=== PATIENT | male | born 1965 | race Caucasian/White ===

== ENCOUNTER 2021-08-07 17:03 | Inpatient (IN) | payer BC, SELFPAY ==
[2021-08-07] VITALS (24 sets, daily range): BP systolic 142–197; BP diastolic 85–138; PULSE 124–184; RESP 12–28; TEMP 36.4–37.1; O2SAT 93–99; BMI 33.9; BMI 33.2
--- NOTE | 2021-08-07 17:23 | EKG12_ITS ---
Test Reason : PALPATATIONS Blood Pressure : / mmHG Vent. Rate : 192 BPM Atrial Rate : 089 BPM P-R Int : 000 ms QRS Dur : 080 ms QT Int : 258 ms P-R-T Axes : 000 -22 116 degrees QTc Int : 461 ms Atrial fibrillation /Flutter ST & T wave abnormality, consider lateral ischemia Poor R wave progression Abnormal ECG Confirmed by MALIA LAMBERT, RAVEN ([id number]), health editor JOAN REYES ([id number]) on 08/08/2021 1:25:04 PM Referred By: Og Sharma Confirmed By:RAVEN FINLEY MD
--- NOTE | 2021-08-07 17:24 | EX.ED.DYSGE1 ---
HPI History of Present Illness Chief Complaint: Palpitations Detail of Chief Complaint: Palpitations that started around 1 PM today Informant: patient Narrative Narrative: Patient was seeing his primary care physician for a diabetic check today when he complained of palpitations and an EKG revealed atrial fibrillation with rapid ventricular response. Patient was advised to present to the emergency department. Patient denies any chest pain or shortness of breath. Patient states this is happened before but usually would resolve after 5 or 6 hours. He is never been diagnosed with atrial fibrillation. He is not currently anticoagulated. Patient does have history of hypertension and diabetes. Patient denies any coronary artery disease history. He does complain of some exertional dyspnea at times but has not been having any chest pain or chest pressure. Prior similar symptoms: Yes [facility] Medical History (Updated 08/07/21 @ 19:[address] Trent Ross, DO) Diabetes History of deviated nasal septum Hypertension Home Medications amlodipine 5 mg PO DAILY 08/07/21 [History Last Taken Unknown] atenolol 50 mg PO DAILY 08/07/21 [History Last Taken Unknown] hydrochlorothiazide 50 mg PO DAILY 08/07/21 [History Last Taken Unknown] lisinopril 40 mg PO DAILY 08/07/21 [History Last Taken Unknown] metformin 100 mg PO BID 08/07/21 [History Last Taken Unknown] rosuvastatin 10 mg PO DAILY 08/07/21 [History Last Taken Unknown] sitagliptin [Januvia] 25 mg PO DAILY 08/07/21 [History Last Taken Unknown] Allergy/AdvReac Type Severity Reaction Status Date / Time amoxicillin Allergy Angioedema Verified 08/07/21 17:08 Penicillins [PCN] Allergy Angioedema Verified 08/07/21 17:08 metoprolol [From Toprol XL] AdvReac Other Verified 08/07/21 17:08 valsartan [From Diovan] AdvReac Upset Verified 08/07/21 17:08 Stomach Social History Smoking Status: Unknown if ever smoked ROS ROS ED Constitutional Constitutional ED: Reports systems reviewed and no addt'l complaints, except as documented; Denies body ache(s), change in weight or chills Eyes Eyes: Denies acute decrease in peripheral vision, change in vision, double vision or loss of vision ENT ENT ED: Reports none; Denies ear pain, lip swelling, loss taste/smell, neck pain, otalgia or sore throat Cardiovascular Cardiovascular: Reports none and palpitations; Denies abdominal pain, chest pain with activity, leg edema, lightheadedness, rapid heart rate or syncope Respiratory/Chest Respiratory/Chest: Reports none; Denies change in mental status, dry cough, dyspnea, hemoptysis, shortness of breath at rest or shortness of breath with exertion Gastrointestinal Gastrointestinal: Reports none; Denies abdominal pain, change in stool character, diarrhea, hematemesis, hematochezia, melena, rectal bleeding or vomiting Genitourinary Genitourinary ED: Reports none; Denies abdominal discomfort, anuria, dysuria, genital pain or polyuria Musculoskeletal Musculoskeletal: Reports none; Denies arthralgias, back pain, difficulty walking, extremity pain, muscle weakness or myalgias Integumentary Reports none; Denies abscess or rash Neurologic Neurologic: Reports none; Denies abnormal gait, confusion, focal weakness, frequent falls, headache(s), loss of vision, numbness, paresthesias, radicular pain, vertigo or weakness Psychiatric Psychiatric: Reports systems reviewed and no addt'l complaints, except as documented and none; Denies behavioral changes, confusion, difficulty concentrating, hallucinations, suicidal ideation, tactile hallucinations or visual hallucinations Endocrine Endocrinology: Denies none, cold intolerance, excessive sweating, fatigue or heat intolerance Hematologic/Lymphatic Hematologic/Lymphatic: Reports none; Denies anemia, easy bleeding or easy bruising Allergic/Immunologic Allergic/Immunologic ED: Denies as per HPI, none, lip swelling, mouth swelling, throat swelling, tongue swelling or hives EXAM Physical Exam Const Vital Signs: 08/07/21 17:04 08/07/21 17:25 08/07/21 17:37 Temperature 98 F Temperature Source Oral Oral Pulse Rate 128 H 184 H Respiratory Rate 16 25 H Respiratory Effort Normal Non-Labored Blood Pressure 197/123 H 189/136 H Blood Pressure Mean 147 153 Blood Pressure Position Blood Pressure Location Pulse Ox 98 97 Oxygen Delivery Method Room Air 08/07/21 17:57 08/07/21 17:59 08/07/21 18:00 Temperature Temperature Source Pulse Rate 172 H 161 H 172 H Respiratory Rate 28 H Respiratory Effort Blood Pressure 151/99 H Blood Pressure Mean 116 Blood Pressure Position Blood Pressure Location Pulse Ox 98 Oxygen Delivery Method Room Air 08/07/21 18:01 08/07/21 18:09 08/07/21 18:39 Temperature 98.7 F 98.7 F Temperature Source Temporal Temporal Pulse Rate 151 H 139 H 151 H Respiratory Rate 28 H 16 15 Respiratory Effort Blood Pressure 168/87 H 168/87 H 174/112 H Blood Pressure Mean 114 114 132 Blood Pressure Position Sitting Blood Pressure Location Right Arm Pulse Ox 97 97 97 Oxygen Delivery Method Room Air Room Air Positive well nourished and well developed General Appearance ED: well developed and NAD HEENT Reports TM's clear and moist mucous membranes normocephalic and atraumatic; Negative for trauma or tenderness Tympanic Membrane ED: Yes TM's clear Eyes PERRL and EOMs intact bilaterally General Eye ED: Negative for pale conjunctiva or scleral icterus Neck no lymphadenopathy, supple and no JVD General: Negative for tenderness Chest Wall inspection of chest normal and palpation of chest normal Chest: Negative for tenderness Resp normal respiratory effort and clear to auscultation bilaterally Effort and Inspection: Negative for respiratory distress or pain with movement Auscultation: Negative for rhonchi, wheezes or diminished lung sounds Cardio S1 normal heart sound, S2 normal heart sound and no murmurs Rate: tachycardic and other Other Details: Irregularly irregular and tachycardic Peripheral Pulses: pulses 2+ throughout GI normal to inspection, nondistended, normoactive bowel sounds, soft to palpation, non-tender, non-distended and no masses Back/Spine no CVA tenderness and no thoracic nor lumbar tenderness Extremity normal to inspection General Extremety ED: Negative for edema General Extremity: Negative for edema Neuro oriented x3, CN's II-XII intact bilaterally, no sensory deficits noted and gait normal Sensorium / Orientation: awake, alert, oriented to person, oriented to place and oriented to time Motor Exam: strength 5/5 throughout and strength abnormal Psych mental status grossly normal Skin no rashes or lesions noted and no wounds MDM MDM MDM Narrative Medical decision making narrative: Patient noted to have A. fib RVR and initially was given Cardizem 20 mg IV bolus however his heart rate continued to be in the 140s to 150s. Patient was then given a 25 mg Cardizem bolus and started on a Cardizem drip. Patient still uncontrolled. Case discussed with hospitalist will evaluate patient for admission Lab Data Attestation: I reviewed the patient's lab results. Labs: Laboratory Results - last 24 hr 08/07/21 08/07/21 17:20 17:20 WBC 11.1 H RBC 5.61 Hgb 17.2 H Hct 49.1 MCV 87.5 MCH 30.7 MCHC 35.0 RDW Std Deviation 40.2 RDW Coeff of [place] 12.5 Plt Count 303 MPV 9.4 Immature Gran % (Auto) 0.400 Neut % (Auto) 61.7 Lymph % (Auto) 24.5 [place] % (Auto) 10.0 Eos % (Auto) 2.7 Baso % (Auto) 0.7 Absolute Neuts (auto) 6.9 Absolute Lymphs (auto) 2.73 Nucleated RBC % 0 Sodium 139 Potassium 3.0 L Chloride 103 Carbon Dioxide 27.0 Anion Gap 9 BUN 22 H Creatinine 1.26 Estim Creat Clear Calc 73.56 Est GFR (MDRD) Af Amer 77 Est GFR (MDRD) Non-Af 63 BUN/Creatinine Ratio 17.5 Glucose 209 H Calcium 9.4 Troponin I High Sens 24 TSH 1.76 Radiography Chest X-Ray - ED: 1 View Diagnostic Testing: Radiology Impression Chest X-Ray 08/07/21 17:42 IMPRESSION: No radiographic evidence of acute cardiopulmonary disease. at 1814 Reported and signed by: Amari Bansal MD Electronically Signed: Amari Bansal MD at 18:13 EDT Tel , Service support , 1 view chest x-ray obtained showed no acute disease process as interpreted by myself. Radiology in agreement. EKG Initial EKG: Attestation: I personally reviewed and interpreted this EKG as follows: Comments: A. fib RVR with ventricular rate of [address] changes. Discharge Plan Triage Chief Complaint: Palpitations ED Provider: Trent Ross Dx/Rx/DC Orders Clinical Impression: Atrial fibrillation with rapid ventricular response, Hypertension Prescriptions: No Action hydrochlorothiazide 50 mg tablet 50 mg PO DAILY RF: 0 amlodipine 5 mg tablet 5 mg PO DAILY RF: 0 lisinopril 40 mg tablet 40 mg PO DAILY RF: 0 metformin 500 mg tablet extended release 24 hr 100 mg PO BID RF: 0 atenolol 50 mg tablet 50 mg PO DAILY RF: 0 rosuvastatin 10 mg tablet 10 mg PO DAILY RF: 0 Januvia 25 mg tablet 25 mg PO DAILY RF: 0 Primary Care Provider: Nemesio Persaud Referrals: Nemesio Persaud MD [Primary Care Provider] - Disposition Disposition: Acute Care Hospital [facility]
--- NOTE | 2021-08-07 17:26 | NURSING ---
NO OLD EKGS
[2021-08-07 17:34] LABS: Absolute Lymphocyte Count 2.73 X10^3/uL (0.83-4.51); Absolute Neutrophil Count 6.9 X10^3/uL (2.0-7.7); Basophil# 0.08 X10^3/uL; Basophil% 0.7 % (0-1); Eosinophils% 2.7 % (0-5); Hematocrit 49.1 % (40-54); Hemoglobin 17.2 g/dL (13.0-16.5); Lymphocyte # 2.73 X10^3/ul (0.83-4.51); Lymphocyte % 24.5 % (19-41); Mean Corpuscular Hgb 30.7 pg (27.0-32.0); Mean Corpuscular Volume 87.5 fL (80-94); Mean Platelet Vol. 9.4 fl (6.2-12.0); Monocyte# 1.11 X10^3/uL; NRBC Flagged by Analyzer 0 % (0-5); Neutrophil # 6.88 X10^3/uL (2.7-7.7); Neutrophil % 61.7 % (47-70); Platelet Count 303 K/mm3 (150-450); RBC Distribution Width CV 12.5 % (11.6-14.6); RBC Distribution Width SD 40.2 fl (35.1-43.9); Red Blood Count 5.61 M/mm3 (4.6-6.2); White Blood Count 11.1 K/mm3 (4.4-11.0)
--- NOTE | 2021-08-07 17:42 | RAD_ITS ---
HISTORY: tachycardia EXAMINATION/TECHNIQUE: XR Chest 1 View: 1 view COMPARISON: None FINDINGS: LINES/DEVICES: None. LUNGS: No consolidation, edema or effusion. No pneumothorax. MEDIASTINUM AND CARDIOVASCULAR STRUCTURES: Cardiac silhouette not enlarged. Central airways and mediastinal contour are unremarkable. BONES AND SOFT TISSUES: No acute bony abnormalities. RAD/Chest 1 View (Portable) IMPRESSION: No radiographic evidence of acute cardiopulmonary disease. at 1814 Reported and signed by: Amari Bansal MD Electronically Signed: Amari Bansal MD at 18:13 EDT Tel , Service support ,
[2021-08-07] MEDS: 0.9% Normal Saline 1,000 ML 150 ML IV (17:44)
[2021-08-07] MEDS: dilTIAZem 25 MG/5 ML Vial 20 MG IV BOLUS (17:44)
[2021-08-07] MEDS: dilTIAZem 25 MG/5 ML Vial IV BOLUS (17:56)
[2021-08-07 17:59] LABS: Anion Gap 9 (5-15); BUN 22 mg/dL (7-18); BUN/Creat Ratio 17.5 RATIO (10-20); Calcium,Total 9.4 mg/dL (8.5-10.1); Chloride 103 mmol/L (98-107); Creatinine, Serum 1.26 mg/dL (0.70-1.30); EST Glomerular Filtration Rate 63 mL/min (>60); Est Glom Filt Rate - Afr Amer 77 mL/min (>60); Estimated Creatinine Clearance 73.56 ml/min; Glucose 209 mg/dL (74-106); Sodium Level 139 mmol/L (136-145); Thyroid Stim Hormone (TSH) 1.76 uIU/mL (0.358-3.74); Troponin-I HS 24 pg/mL (3.0-78.0)
--- NOTE | 2021-08-07 19:17 | PCM.HP.STD ---
HPI - General General Date of Admission: 08/07/21 Date of Service: 08/07/21 Chief Complaint: Palpitations HPI Narrative FINESSE MALAVE, is a 56 M with a significant history of hypertension and diabetes who presents to the emergency department with palpitations. Patient went to see his PCP for diabetic checkup. While there he mentioned that he had a palpitation on the same day. Auscultation of heart rate at PCPs office showed irregular rhythm. Subsequent EKG confirmed A. fib. Patient was sent to emergency department. At the emergency department patient's EKG showed atrial fibrillation with rapid ventricular response with rate of 192. Patient received multiple boluses of Cardizem IV and Cardizem drip was initiated. Patient reported that from time to time he has been having palpitations that goes away. He also reports multiple episodes of his blood pressure machine show him that his heart rate was irregular. [facility] Medical History Diabetes History of deviated nasal septum Hypertension Home Medications amlodipine 5 mg PO DAILY 08/07/21 [History Last Taken Unknown] atenolol 50 mg PO DAILY 08/07/21 [History Last Taken Unknown] hydrochlorothiazide 50 mg PO DAILY 08/07/21 [History Last Taken Unknown] lisinopril 40 mg PO DAILY 08/07/21 [History Last Taken Unknown] metformin 100 mg PO BID 08/07/21 [History Last Taken Unknown] rosuvastatin 10 mg PO DAILY 08/07/21 [History Last Taken Unknown] sitagliptin [Januvia] 25 mg PO DAILY 08/07/21 [History Last Taken Unknown] Allergy/AdvReac Type Severity Reaction Status Date / Time amoxicillin Allergy Angioedema Verified 08/07/21 17:08 Penicillins [PCN] Allergy Angioedema Verified 08/07/21 17:08 metoprolol [From Toprol XL] AdvReac Other Verified 08/07/21 17:08 valsartan [From Diovan] AdvReac Upset Verified 08/07/21 17:08 Stomach Family History Other CVA (cerebral vascular accident) Heart disease Hypertension Surgical History History of ankle surgery S/P manipulation of deviated nasal septum [place] teeth extracted Social History Smoking Status: Never smoker ROS ROS Narrative Constitutional: Denies anorexia and change in weight Eyes: Denies blurry vision, change in eye color, change in vision, discharge from eye(s), double vision, erythema, eye pain, loss of vision or other HEENT: Denies abnormal hearing, dysphagia, ear pain, epistaxis, headache(s), hearing loss, nasal congestion, nasal discharge, post nasal drip, sinus pressure, sore throat or other Cardiovascular: Reports palpitations. Denies chest pain. Denies dyspnea on exertion, orthopnea and paroxysmal nocturnal dyspnea Respiratory/Chest: Denies cough, excessive phlegm production, shortness of breath with exertion and wheezing Gastrointestinal: Denies abdominal pain, coffee ground emesis, constipation, diarrhea, dyspepsia, hematemesis, hematochezia, loose stools, melena, nausea, vomiting or other Genitourinary: Denies burning urination, difficulty urinating, dysuria, hematuria, nocturia, urinary frequency, urinary hesitancy, urinary incontinence, urinary urgency or other Musculoskeletal: Denies arthralgias, back pain, joint pain, joint stiffness, joint swelling, myalgias, neck pain or other Neurologic: Denies abnormal gait, abnormal speech, confusion, disequilibrium, dizziness, focal weakness, headache(s), numbness, paresthesias, seizure-like activity, seizures, syncope, tingling, tremor(s) or other Psychiatric: Denies anxiety, depression, homicidal ideation, suicidal ideation or other Endocrinology: Denies change in body appearance, cold intolerance, excessive sweating, heat intolerance, polydipsia, polyuria or other Hematologic/Lymphatic: Denies anemia, easy bleeding, easy bruising, lymphadenopathy or other Integumentary: Denies rashes Allergic/Immunologic: Denies rhinitis, hives, eczema, asthma or other Vital Signs Vital Signs Vital Signs: 08/07/21 17:04 08/07/21 17:25 08/07/21 17:37 Temperature 98 F Temperature Source Oral Oral Pulse Rate 128 H 184 H Respiratory Rate 16 25 H Respiratory Effort Normal Non-Labored Blood Pressure 197/123 H 189/136 H Blood Pressure Mean 147 153 Blood Pressure Position Blood Pressure Location Pulse Ox 98 97 Oxygen Delivery Method Room Air 08/07/21 17:57 08/07/21 17:59 08/07/21 18:00 Temperature Temperature Source Pulse Rate 172 H 161 H 172 H Respiratory Rate 28 H Respiratory Effort Blood Pressure 151/99 H Blood Pressure Mean 116 Blood Pressure Position Blood Pressure Location Pulse Ox 98 Oxygen Delivery Method Room Air 08/07/21 18:01 08/07/21 18:09 08/07/21 18:39 Temperature 98.7 F 98.7 F Temperature Source Temporal Temporal Pulse Rate 151 H 139 H 151 H Respiratory Rate 28 H 16 15 Respiratory Effort Blood Pressure 168/87 H 168/87 H 174/112 H Blood Pressure Mean 114 114 132 Blood Pressure Position Sitting Blood Pressure Location Right Arm Pulse Ox 97 97 97 Oxygen Delivery Method Room Air Room Air 08/07/21 19:13 Temperature 97.6 F L Temperature Source Temporal Pulse Rate 144 H Respiratory Rate 15 Respiratory Effort Blood Pressure 178/111 H Blood Pressure Mean 133 Blood Pressure Position Blood Pressure Location Pulse Ox 99 Oxygen Delivery Method Room Air Weight Weight: 113.4 kg Body Mass Index (BMI) 33.9 Physical Exam Narrative Physical exam: General: Well-nourished, well-developed. Head: Normocephalic, atraumatic, no tenderness Eyes: PERRLA, EOMI ENT, no trauma, moist mucous membranes, no rhinorrhea Neck: Nontender, full range of motion, no spinal tenderness, deformities, step-off CVS: Irregularly irregular rate and rhythm. No murmur, gallop or rub. Respiratory : clear to auscultation bilaterally, chest wall nontender, no wheezing Abdomen: Soft, nontender, nondistended, normal bowel sounds, no masses : Deferred Back: Nontender, no CVA tenderness, no midline spinal tenderness, deformities, step-offs Extremities: Nontender full range of motion, no trauma Skin: Normal color, no trauma, abrasions Neuro: Alert, oriented, cranial nerves II through XII grossly intact. Psychiatry: Normal mood. Normal affect. Not depressed. Not anxious. Results Lab / Micro Data Result Diagrams: 08/07/21 17:20 08/07/21 17:20 Labs: Laboratory Results - last 24 hr 08/07/21 17:20: WBC 11.1 H, RBC 5.61, Hgb 17.2 H, Hct 49.1, MCV 87.5, MCH 30.7, MCHC 35.0, RDW Std Deviation 40.2, RDW Coeff of [place] 12.5, Plt Count 303, MPV 9.4, Immature Gran % (Auto) 0.400, Neut % (Auto) 61.7, Lymph % (Auto) 24.5, [place] % (Auto) 10.0, Eos % (Auto) 2.7, Baso % (Auto) 0.7, Absolute Neuts (auto) 6.9, Absolute Lymphs (auto) 2.73, Nucleated RBC % 0 08/07/21 17:20: Sodium 139, Potassium 3.0 L, Chloride 103, Carbon Dioxide 27.0, Anion Gap 9, BUN 22 H, Creatinine 1.26, Estim Creat Clear Calc 73.56, Est GFR (MDRD) Af Amer 77, Est GFR (MDRD) Non-Af 63, BUN/Creatinine Ratio 17.5, Glucose 209 H, Calcium 9.4, Troponin I High Sens 24, TSH 1.76 Radiology Impression Chest X-Ray 08/07/21 17:42 IMPRESSION: No radiographic evidence of acute cardiopulmonary disease. at 1814 Reported and signed by: Amari Bansal MD Electronically Signed: Amari Bansal MD at 18:13 EDT Tel , Service support , Assessment & Plan Assessment/Plan (1) Atrial fibrillation with rapid ventricular response: (2) Hypertension: QUALIFIERS: Hypertension type: primary hypertension Qualified Code(s): I10 - Essential (primary) hypertension (3) Diabetes mellitus, type 2: QUALIFIERS: Diabetes mellitus complication status: without complication Diabetes mellitus technician terminal and repeater insulin use: without technician terminal and repeater use Qualified Code(s): E11.9 - Type 2 diabetes mellitus without complications PLAN: Atrial fibrillation with rapid ventricular response Impression of chest x-ray by radiology: No radiographic evidence of acute cardiopulmonary disease. Actual chest x-ray image was independently interpreted and agree radiologist interpretation. Multiple EKG tracings independently reviewed showed atrial fibrillation with rate of 192 and at rest with rates in the 150s. Place on PCU on telemetry High-sensitivity troponin is negative Obtain echo [id number] score of 2 (hypertension and diabetes). Lovenox 1 mg per kilogram subcutaneous every 12 hours Received Cardizem bolus and drip. With Cardizem going at 15 mg/h amiodarone bolus and drip ordered. Home amlodipine discontinued to make room for titration of rate controlling drug. Of note patient is allergic to metoprolol XL. Review of labs showed low potassium of 3.0. Will give IV and p.o. without supplementation. Will check magnesium. TSH is unremarkable Diabetes mellitus Patient with hyperglycemia on presentation Metformin held. Januvia continued. Accu-Chek with correction scale insulin ordered. Crestor continued. Hypertension Blood pressure is not within goal Atenolol; hydrochlorothiazide and lisinopril continued. Started on Cardizem drip for A. fib. Trend blood pressure and adjust blood pressure medications. DVT prophylaxis: Not indicated since patient has been started on therapeutic dose of Lovenox. Charges/Coding Visit Charges Inpatient E&M: 30718 Init Hosp L3
[2021-08-07 19:47] LABS: Magnesium 2.1 mg/dL (1.6-2.6)
--- NOTE | 2021-08-07 20:06 | ECHOCS_ITS ---
Reason For Study: Afib/Flutter Procedure This was a 2D Doppler, Color Flow transthoracic echocardiogram. The study was technically difficult. Contrast injection was performed. Exam performed portable in patient room. Left Ventricle Normal LV size. Severe concentric left ventricular hypertrophy. Left ventricular systolic function is normal. The estimated ejection fraction is 60 %. No regional wall motion abnormalities noted. Right Ventricle Normal RV size. Normal systolic function. Atria Normal left atrium. Normal right atrium. Mitral Valve Normal mitral valve. Tricuspid Valve Normal tricuspid valve. Mild tricuspid valve insufficiency. Pulmonary artery systolic pressure is 25 mmHg. Aortic Valve Normal aortic valve. Pulmonic Valve Normal pulmonic valve. Great Vessels Normal aortic root. Pericardium/Pleural No pericardial effusion. Medication Diluted definity 2ml given slow IV push to enhance endocardial definition. MMode/2D Measurements & Calculations LVIDd: 3.8 cm IVSd: 1.7 cm LAV(MOD-bp): 48.6 ml LVIDs: 2.7 cm LVPWd: 1.6 cm FS: 29.3 % LAV(MOD-bp) Indexed: 20.9 ml/m2 LAV(MOD-sp2): 49.7 ml LAV(MOD-sp4): 43.1 ml LA A4 area: 17.6 cm2 RA A4 area: 15.0 cm2 Doppler Measurements & Calculations MV E max yovany: 99.1 cm/sec Ao V2 max: 91.0 cm/sec LV V1 max: 94.2 cm/sec Ao max P.3 mmHg LV V1 max P.6 mmHg PA V2 max: 83.5 cm/sec TR max yovany: 233.7 cm/sec TR max P.8 mmHg ECHO/Echo Complete W/ Contrast Interpretation Summary Normal LV size. No regional wall motion abnormalities noted. Left ventricular systolic function is normal. The estimated ejection fraction is 60 %. Severe concentric left ventricular hypertrophy. Contrast injection was performed. Ordering Physician: Og Sharma Referring Physician: Chinedu Persaud Performed By: Miguel Suazo RCS
--- NOTE | 2021-08-07 20:14 | PCS.PANDOC ---
PANDEMIC DOCUMENTATION INITIATED: Date: 07/09/2021 Time: 190
[2021-08-07] MEDS: Potassium Chloride 10mEq/100mL 10 MEQ/100 ML IV.SOLN. 100 MEQ IV BOLUS ×3 (20:39→22:59)
[2021-08-07] MEDS: 0.9% Saline Lock 10 ML Syringe IV ×2 (20:40→22:59)
[2021-08-07] MEDS: Amiodarone 360 MG in Dextrose 5% Viaflo Bag 192.8 ML 33.3 MG CONT INF (21:10)
[2021-08-07] MEDS: Potassium Chloride Oral Tablet 20 MEQ 40 MEQ PO (21:11)
[2021-08-07] MEDS: Enoxaparin 120 MG/0.8 ML Syringe 110 MG SC (21:12)
[2021-08-07] MEDS: Atorvastatin Calcium 20 MG Tablet PO (21:12)
[2021-08-07] MEDS: Insulin Lispro 100 UNIT/ML INSULN.PEN SC (21:20)
[2021-08-07 21:36] LABS: Bedside Glucose 222 mg/dL (70-110)
[2021-08-07] MEDS: Digoxin 250 MCG/ML Ampul 500 MCG IV (22:59)
[2021-08-08] VITALS (26 sets, daily range): BP systolic 120–170; BP diastolic 83–113; PULSE 49–131; RESP 12–24; TEMP 36.3–37.2; O2SAT 93–98
[2021-08-08] MEDS: Potassium Chloride 10mEq/100mL 10 MEQ/100 ML IV.SOLN. 100 MEQ IV BOLUS (01:03)
[2021-08-08] MEDS: Amiodarone 360 MG in Dextrose 5% Viaflo Bag 192.8 ML 16.7 MG CONT INF (02:59)
[2021-08-08] MEDS: Digoxin 250 MCG/ML Ampul IV (03:00)
[2021-08-08] MEDS: 0.9% Saline Lock 10 ML Syringe IV ×2 (03:01→22:19)
--- NOTE | 2021-08-08 05:43 | EKG12_ITS ---
Test Reason : RHYTHM CHANGE Blood Pressure : / mmHG Vent. Rate : 061 BPM Atrial Rate : 061 BPM P-R Int : 160 ms QRS Dur : 084 ms QT Int : 466 ms P-R-T Axes : 028 -09 001 degrees QTc Int : 469 ms Normal sinus rhythm Nonspecific ST abnormality Abnormal ECG When compared with ECG of 07-AUG-2021 17:32, MANUAL COMPARISON REQUIRED, DATA IS UNCONFIRMED Confirmed by SANDY LAMBERT, GO ([id number]), subeditor JOAN REYES ([id number]) on 08/09/2021 10:44:43 AM Referred By: Og Sharma Confirmed By:GO DELGADO MD
[2021-08-08] MEDS: dilTIAZem 30 MG Tablet PO ×2 (05:59→14:47)
[2021-08-08] MEDS: Insulin Lispro 100 UNIT/ML INSULN.PEN SC ×3 (06:37→22:20)
[2021-08-08 06:40] LABS: Bedside Glucose 230 mg/dL (70-110)
[2021-08-08 06:53] LABS: Absolute Lymphocyte Count 1.94 X10^3/uL (0.83-4.51); Absolute Neutrophil Count 6.1 X10^3/uL (2.0-7.7); Basophil# 0.06 X10^3/uL; Basophil% 0.6 % (0-1); Eosinophil# 0.26 X10^3/uL; Eosinophils% 2.8 % (0-5); Hematocrit 44.6 % (40-54); Hemoglobin 15.4 g/dL (13.0-16.5); Lymphocyte # 1.94 X10^3/ul (0.83-4.51); Lymphocyte % 20.8 % (19-41); Mean Corp Hgb Conc 34.5 g/dL (32-36); Mean Corpuscular Hgb 30.9 pg (27.0-32.0); Mean Corpuscular Volume 89.4 fL (80-94); Mean Platelet Vol. 9.7 fl (6.2-12.0); Monocyte# 0.95 X10^3/uL; Monocyte% 10.2 % (0-10); NRBC Flagged by Analyzer 0 % (0-5); Neutrophil % 65.4 % (47-70); Platelet Count 251 K/mm3 (150-450); RBC Distribution Width SD 42.1 fl (35.1-43.9); Red Blood Count 4.99 M/mm3 (4.6-6.2); White Blood Count 9.3 K/mm3 (4.4-11.0)
[2021-08-08 07:17] LABS: Anion Gap 6 (5-15); BUN 13 mg/dL (7-18); BUN/Creat Ratio 12.7 RATIO (10-20); Calcium,Total 8.6 mg/dL (8.5-10.1); Chloride 104 mmol/L (98-107); Creatinine, Serum 1.02 mg/dL (0.70-1.30); EST Glomerular Filtration Rate 81 mL/min (>60); Est Glom Filt Rate - Afr Amer 98 mL/min (>60); Estimated Creatinine Clearance 90.87 ml/min; Glucose 223 mg/dL (74-106); Potassium 3.5 mmol/L (3.5-5.1); Sodium Level 138 mmol/L (136-145)
[2021-08-08] MEDS: Enoxaparin 120 MG/0.8 ML Syringe 110 MG SC (08:23)
[2021-08-08] MEDS: hydroCHLOROthiazide 25 MG Tablet 50 MG PO (08:23)
[2021-08-08] MEDS: Atenolol 50 MG Tablet PO (08:24)
[2021-08-08] MEDS: LINAGLIPTIN 5 MG TABLET PO (08:24)
[2021-08-08] MEDS: Lisinopril 40 MG Tablet PO (08:24)
--- NOTE | 2021-08-08 11:45 | CASEMGMT ---
RN CM ENGINEER CM to room to meet with patient for initial transition planning/care coordination assessment. RN AMINATA introduced self and role at [facility]. Pt voices understanding and consents to assessment at this time. Pt resting in bed in no distress at this time. Pt is A/O at this time and answers all questions appropriately. Care providers, pharmacy, and demographics verified/updated at this time. PCP: Dr Presaud Specialists: none Preferred Pharmacy: [facility] Insurance: [place] Prescription Benefit: Yes Living Will/HPOA: States does not have LW or HCPOA . Interested in more information but states does not want to talk with SW at this time to complete paperwork. Provided information on advanced directives and given Social Service rac card with number to call if chooses in the future to utilize [facility] social work for advanced directive completion. Educated patient that, if patient so chooses, can come back to [facility] and meet with a SW as an outpatient to complete health care advanced directives. Patient expresses understanding. LNOK: Father, [place]. Siblings Living Arrangements: Lives alone in one-story home w/ramp entrance in front (home was where his father and step-mother lived before she and ramp was for her). Independent w/ADL's and IADL's. Transportation: Pt states drives self and states no transportation concerns at this time. DME: Pt states he did make a walking stick to use only while in the garden, but otherwise he uses no other DME and denies needs. HHC/SNF: No history of either. Denies need for HHC or OP therapy. Pt wishes to return home and states has no concerns with going home at time of discharge. Pt states does not smoke but he does drink 1-4 beers/day, about 4-5 days/week. Pt states he plans on quitting drinking on his own and denies wanting/needing any resources from to aide in quitting. CM to follow for any discharge planning/needs. Pt voices no concerns/needs at this time. Advised pt to ask for CM if any questions/concerns/needs arise. Voices understanding. PLAN: Home Jim BARRIENTOS RN, CM
--- NOTE | 2021-08-08 13:35 | EKG12_ITS ---
Test Reason : Blood Pressure : / mmHG Vent. Rate : 062 BPM Atrial Rate : 062 BPM P-R Int : 164 ms QRS Dur : 084 ms QT Int : 450 ms P-R-T Axes : 034 -12 006 degrees QTc Int : 456 ms Normal sinus rhythm Poor R wave progression Confirmed by MALIA LAMBERT, RAVEN ([id number]), editor farm journal JOAN REYES ([id number]) on 08/10/2021 7:08:54 AM Referred By: Og Sharma Confirmed By:RAVEN FINLEY MD
--- NOTE | 2021-08-08 14:41 | PCM.CONS.C ---
HPI Consult Data Date of Consult: 08/08/21 HPI Narrative HPI Narrative: FINESSE MALAVE, is a 56 M who presents to the emergency room after going to the primary care physician's office complaining of palpitations. Auscultation over the demonstrated that he was in atrial fibrillation with a rapid ventricular response rate. He presented to the emergency room and was treated with intravenous diltiazem and amiodarone. He was admitted to the telemetry care unit. He apparently got hypotensive on the medications and this was discontinued. Cardiology was asked to evaluate him. He is denied any chest pain no paroxysmal nocturnal dyspnea or pedal edema. He has been compliant with his antihypertensive and diabetic medications. At the time I saw him he appeared to be asymptomatic and had converted back to sinus rhythm. FORMERLY [facility] Medical History Diabetes History of deviated nasal septum Hypertension Home Medications amlodipine 5 mg PO DAILY 08/07/21 [History Last Taken Unknown] atenolol 50 mg PO DAILY 08/07/21 [History Last Taken Unknown] hydrochlorothiazide 50 mg PO DAILY 08/07/21 [History Last Taken Unknown] lisinopril 40 mg PO DAILY 08/07/21 [History Last Taken Unknown] metformin 100 mg PO BID 08/07/21 [History Last Taken Unknown] rosuvastatin 10 mg PO DAILY 08/07/21 [History Last Taken Unknown] sitagliptin [Januvia] 25 mg PO DAILY 08/07/21 [History Last Taken Unknown] Allergy/AdvReac Type Severity Reaction Status Date / Time amoxicillin Allergy Angioedema Verified 08/07/21 17:08 Penicillins [PCN] Allergy Angioedema Verified 08/07/21 17:08 metoprolol [From Toprol XL] AdvReac Other Verified 08/07/21 17:08 valsartan [From Diovan] AdvReac Upset Verified 08/07/21 17:08 Stomach Family History Other CVA (cerebral vascular accident) Heart disease Hypertension Surgical History History of ankle surgery S/P manipulation of deviated nasal septum [place] teeth extracted Social History Smoking Status: Never smoker ROS Constitutional Constitutional: Denies fever(s) or weight loss Eyes Eyes: Reports systems reviewed and no addt'l complaints, except as documented ENT HEENT: Reports systems reviewed and no addt'l complaints, except as documented Cardiovascular Cardiovascular: Reports palpitations; Denies chest pain at rest, chest pain with activity, dyspnea at rest, dyspnea on exertion, edema or paroxysmal nocturnal dyspnea Respiratory/Chest Respiratory/Chest: Denies dyspnea on exertion, productive cough, shortness of breath at rest or shortness of breath with exertion Gastrointestinal Gastrointestinal: Denies change in bowel habits, nausea, vomiting or weight changes Genitourinary Genitourinary: Denies difficulty urinating Musculoskeletal Musculoskeletal: Denies joint stiffness or muscle weakness Integumentary Integumentary: Denies lesions Neurologic Neurologic: Denies dizziness or syncope Psychiatric Psychiatric: Denies anxiety Endocrine Endocrinology: Denies excessive sweating or fatigue Hematologic/Lymphatic Hematologic/Lymphatic: Denies anemia Allergic/Immunologic Allergic/Immunologic: Denies seasonal rhinorrhea Physical Exam Const alert, oriented x3 and no apparent distress General Appearance: cooperative HEENT hearing grossly normal bilaterally Head and Scalp: atraumatic Eyes EOMs intact bilaterally Neck General: normal visual inspection Chest inspection of chest normal and palpation of chest normal Resp normal respiratory effort Auscultation: clear to auscultation bilaterally Cardio regular rate, regular rhythm, S1 normal heart sound and S2 normal heart sound Jugular Venous Distention: JVD GI normal to inspection, nondistended, normoactive bowel sounds Extremity normal capillary refill and no pedal edema Peripheral Pulses: Yes pulses 2+ throughout and femoral pulses present Skin no rashes or lesions noted Neuro oriented x3 and CN's II-XII intact bilaterally Psych Appearance: grossly normal and appropriate Objective Data Vital Signs: Vital Signs Temp Pulse Resp BP Pulse Ox 98.0 F 72 24 H 144/93 H 96 08/08/21 09:00 08/08/21 11:21 08/08/21 10:00 08/08/21 10:00 08/08/21 10:00 Oxygen Delivery Method Room Air Weight: 244 lb 14.937 oz Body Mass Index (BMI) 33.2 Intake & Output: Intake and Output for Last 24 Hours 08/06/21 08/07/21 08/08/21 23:59 23:59 23:59 Intake Total 1159.89 / 1208.19 529.49 / 529.49 Output Total 500 / 500 400 / 400 Balance 659.89 / 708.19 129.49 / 129.49 Lab / Micro Data Result Diagrams: 08/08/21 06:20 08/08/21 06:20 Labs: Laboratory Results - last 24 hr 08/07/21 17:20: WBC 11.1 H, RBC 5.61, Hgb 17.2 H, Hct 49.1, MCV 87.5, MCH 30.7, MCHC 35.0, RDW Std Deviation 40.2, RDW Coeff of [place] 12.5, Plt Count 303, MPV 9.4, Immature Gran % (Auto) 0.400, Neut % (Auto) 61.7, Lymph % (Auto) 24.5, [place] % (Auto) 10.0, Eos % (Auto) 2.7, Baso % (Auto) 0.7, Absolute Neuts (auto) 6.9, Absolute Lymphs (auto) 2.73, Nucleated RBC % 0 08/07/21 17:20: Sodium 139, Potassium 3.0 L, Chloride 103, Carbon Dioxide 27.0, Anion Gap 9, BUN 22 H, Creatinine 1.26, Estim Creat Clear Calc 73.56, Est GFR (MDRD) Af Amer 77, Est GFR (MDRD) Non-Af 63, BUN/Creatinine Ratio 17.5, Glucose 209 H, Calcium 9.4, Troponin I High Sens 24, TSH 1.76 08/07/21 17:20: Magnesium 2.1 08/07/21 21:18: POC Glucose 222 H 08/08/21 06:20: WBC 9.3, RBC 4.99, Hgb 15.4, Hct 44.6, MCV 89.4, MCH 30.9, MCHC 34.5, RDW Std Deviation 42.1, RDW Coeff of [place] 13.0, Plt Count 251, MPV 9.7, Immature Gran % (Auto) 0.200, Neut % (Auto) 65.4, Lymph % (Auto) 20.8, [place] % (Auto) 10.2 H, Eos % (Auto) 2.8, Baso % (Auto) 0.6, Absolute Neuts (auto) 6.1, Absolute Lymphs (auto) 1.94, Nucleated RBC % 0 08/08/21 06:20: Sodium 138, Potassium 3.5, Chloride 104, Carbon Dioxide 28.0, Anion Gap 6, BUN 13, Creatinine 1.02, Estim Creat Clear Calc 90.87, Est GFR (MDRD) Af Amer 98, Est GFR (MDRD) Non-Af 81, BUN/Creatinine Ratio 12.7, Glucose 223 H, Calcium 8.6 08/08/21 06:36: POC Glucose 230 H Cardiology Labs/Tests 08/07/21 17:20: WBC 11.1 H, RBC 5.61, Hgb 17.2 H, Hct 49.1, MCV 87.5, MCH 30.7, MCHC 35.0, Plt Count 303, MPV 9.4, Immature Gran % (Auto) 0.400, Neut % (Auto) 61.7, Lymph % (Auto) 24.5, [place] % (Auto) 10.0, Eos % (Auto) 2.7, Baso % (Auto) 0.7, Absolute Neuts (auto) 6.9, Nucleated RBC % 0 08/07/21 17:20: Sodium 139, Potassium 3.0 L, Chloride 103, Carbon Dioxide 27.0, Anion Gap 9, BUN 22 H, Creatinine 1.26, Est GFR (MDRD) Af Amer 77, Est GFR (MDRD) Non-Af 63, BUN/Creatinine Ratio 17.5, Glucose 209 H, Calcium 9.4 08/07/21 17:20: Magnesium 2.1 08/08/21 06:20: WBC 9.3, RBC 4.99, Hgb 15.4, Hct 44.6, MCV 89.4, MCH 30.9, MCHC 34.5, Plt Count 251, MPV 9.7, Immature Gran % (Auto) 0.200, Neut % (Auto) 65.4, Lymph % (Auto) 20.8, [place] % (Auto) 10.2 H, Eos % (Auto) 2.8, Baso % (Auto) 0.6, Absolute Neuts (auto) 6.1, Nucleated RBC % 0 08/08/21 06:20: Sodium 138, Potassium 3.5, Chloride 104, Carbon Dioxide 28.0, Anion Gap 6, BUN 13, Creatinine 1.02, Est GFR (MDRD) Af Amer 98, Est GFR (MDRD) Non-Af 81, BUN/Creatinine Ratio 12.7, Glucose 223 H, Calcium 8.6 Rhythm: EKG: Atrial fibrillation with rapid ventricular response rate. Follow-up EKG demonstrates normal sinus rhythm. ECHO: Preserved left ventricular systolic function with concentric left ventricular hypertrophy Stress Test: Cardiac Cath: PCI: CT Surgery: Holter monitor: EPS: PPM: CXR: Chest CT Scan: Radiography Diagnostic Testing: Radiology Impression Chest X-Ray 08/07/21 17:42 IMPRESSION: No radiographic evidence of acute cardiopulmonary disease. at 1814 Reported and signed by: Amari Bansal MD Electronically Signed: Amari Bansal MD at 18:13 EDT Tel , Service support , Echocardiogram 08/07/21 20:06 Interpretation Summary Normal LV size. No regional wall motion abnormalities noted. Left ventricular systolic function is normal. The estimated ejection fraction is 60 %. Severe concentric left ventricular hypertrophy. Contrast injection was performed. Ordering Physician: Og Sharma Referring Physician: Chinedu Persaud Performed By: Miguel Suazo RCS
--- NOTE | 2021-08-08 14:43 | PCM.PN.HOSP ---
Documented by User: Lenka Walker NP, [employer] 08/08/21 14:49 Subjective Subjective Patient seen and examined. Denies chest pain. States he has had intermittent palpitations for approximately 5 years. Patient reports over the past few months he has had increased fatigue and shortness of breath with exertion that was not present prior. Denies other symptoms or complaints. Objective Data Objective Data Vital Signs: Vital Signs Temp Pulse Resp BP Pulse Ox 98.0 F 72 24 H 144/93 H 96 08/08/21 09:00 08/08/21 11:21 08/08/21 10:00 08/08/21 10:00 08/08/21 10:00 Oxygen Delivery Method Room Air Weight: 244 lb 14.937 oz Body Mass Index (BMI) 33.2 Intake & Output: Intake and Output for Last 24 Hours 08/06/21 08/07/21 08/08/21 23:59 23:59 23:59 Intake Total 1159.89 / 1208.19 529.49 / 529.49 Output Total 500 / 500 400 / 400 Balance 659.89 / 708.19 129.49 / 129.49 Lab / Micro Data Result Diagrams: 08/08/21 06:20 08/08/21 06:20 Labs: Laboratory Results - last 24 hr 08/07/21 17:20: WBC 11.1 H, RBC 5.61, Hgb 17.2 H, Hct 49.1, MCV 87.5, MCH 30.7, MCHC 35.0, RDW Std Deviation 40.2, RDW Coeff of [place] 12.5, Plt Count 303, MPV 9.4, Immature Gran % (Auto) 0.400, Neut % (Auto) 61.7, Lymph % (Auto) 24.5, [place] % (Auto) 10.0, Eos % (Auto) 2.7, Baso % (Auto) 0.7, Absolute Neuts (auto) 6.9, Absolute Lymphs (auto) 2.73, Nucleated RBC % 0 08/07/21 17:20: Sodium 139, Potassium 3.0 L, Chloride 103, Carbon Dioxide 27.0, Anion Gap 9, BUN 22 H, Creatinine 1.26, Estim Creat Clear Calc 73.56, Est GFR (MDRD) Af Amer 77, Est GFR (MDRD) Non-Af 63, BUN/Creatinine Ratio 17.5, Glucose 209 H, Calcium 9.4, Troponin I High Sens 24, TSH 1.76 08/07/21 17:20: Magnesium 2.1 08/07/21 21:18: POC Glucose 222 H 08/08/21 06:20: WBC 9.3, RBC 4.99, Hgb 15.4, Hct 44.6, MCV 89.4, MCH 30.9, MCHC 34.5, RDW Std Deviation 42.1, RDW Coeff of [place] 13.0, Plt Count 251, MPV 9.7, Immature Gran % (Auto) 0.200, Neut % (Auto) 65.4, Lymph % (Auto) 20.8, [place] % (Auto) 10.2 H, Eos % (Auto) 2.8, Baso % (Auto) 0.6, Absolute Neuts (auto) 6.1, Absolute Lymphs (auto) 1.94, Nucleated RBC % 0 08/08/21 06:20: Sodium 138, Potassium 3.5, Chloride 104, Carbon Dioxide 28.0, Anion Gap 6, BUN 13, Creatinine 1.02, Estim Creat Clear Calc 90.87, Est GFR (MDRD) Af Amer 98, Est GFR (MDRD) Non-Af 81, BUN/Creatinine Ratio 12.7, Glucose 223 H, Calcium 8.6 08/08/21 06:36: POC Glucose 230 H Radiography Diagnostic Testing: Radiology Impression Chest X-Ray 08/07/21 17:42 IMPRESSION: No radiographic evidence of acute cardiopulmonary disease. at 1814 Reported and signed by: Amari Bansal MD Electronically Signed: Amari Bansal MD at 18:13 EDT Tel , Service support , Echocardiogram 08/07/21 20:06 Interpretation Summary Normal LV size. No regional wall motion abnormalities noted. Left ventricular systolic function is normal. The estimated ejection fraction is 60 %. Severe concentric left ventricular hypertrophy. Contrast injection was performed. Ordering Physician: Og Sharma Referring Physician: Chinedu Persaud Performed By: Miguel Suazo RCS Physical Exam Const alert, oriented x3 and no apparent distress Orientation / Consciousness: awake, oriented to person, oriented to place and oriented to time HEENT normocephalic and moist oral mucous membranes Eyes PERRL, EOMs intact bilaterally and conjunctivae normal Neck no lymphadenopathy Resp normal respiratory effort and clear to auscultation bilaterally Cardio no murmurs Cardio Narrative: Atrial fibrillation Peripheral Pulses: pulses 2+ throughout GI normal to inspection, nondistended, normoactive bowel sounds, non-tender and non-distended Extremity normal to inspection Skin no rashes or lesions noted Lesions: no lesions Rashes: no rashes Trauma: no lacerations or abrasions Neuro CN's II-XII intact bilaterally, no focal motor deficits, no sensory deficits noted and deep tendon reflexes 2+ bilaterally Psych mental status grossly normal and affect normal Assessment & Plan Assessment/Plan (1) Atrial fibrillation with rapid ventricular response: PLAN: 1. Atrial fibrillation with RVR, new onset-patient describes similar symptoms over the past 5 years however no previous diagnosis. Initially on IV Cardizem and IV amiodarone however developed bradycardia with pause. On oral Cardizem. Troponin negative. TSH within normal limits. Cardiology consulted due to significant fluctuating rate. Therapeutic Lovenox. Will need transition to oral anticoagulation at discharge. Echocardiogram demonstrates an EF of 60%, severe left ventricular hypertrophy. 2. Hypertension, uncontrolled-on amlodipine, atenolol, hydrochlorothiazide, lisinopril. Increase amlodipine to 10 mg daily. 3. Type 2 diabetes [id number] with sliding scale insulin. 4. Hyperlipidemia-continue statin. DVT prophylaxis-therapeutic Lovenox This patient was seen by Lenka Aaron, [employer] under the supervision of Dr. Coker. Documented by User: Dr. Maria De Jesus Coker MD 08/08/21 16:14 Objective Data Lab / Micro Data Result Diagrams: 08/08/21 06:20 08/08/21 06:20 Charges/Coding Addendum Addendum: This patient was seen in conjunction with Lenka Walker. I have independently interviewed and examined the patient and reviewed pertinent historical, laboratory, and other data. I have reviewed her note and concur with her documentation Patient was seen and examined. He remained in A. fib with RVR alternating with periods of bradycardia. His Cardizem drip as well as amiodarone drip were discontinued. Patient however said he felt improved. He denied any chest pain or dizziness. Physical Exam: Gen: Comfortable, not pale, not jaundiced CVS:HS I +II, regular, no murmurs RESP: Diminished at lung bases GI: BS present and normal, soft, nontender, no palpable organs EXT:No edema ASSESSMENT: 1. A. fib with RVR 2. Type II DM 3. Hypertension Plan: Check HbA1c Continue Tradjenta, high-dose insulin sliding scale with blood glucose checks Appreciate cardiology consult Continue hydrochlorothiazide, amlodipine, atenolol Visit Charges Inpatient E&M: 11195 Subs Hosp L3
[2021-08-08] MEDS: Potassium Chloride Oral Tablet 20 MEQ PO (14:46)
[2021-08-08] MEDS: amLODIPine 5 MG Tablet PO (14:46)
[2021-08-08 16:50] LABS: Hemoglobin A1c 7.3 % (3.8-5.6)
[2021-08-08 17:00] LABS: Bedside Glucose 225 mg/dL (70-110)
[2021-08-08] MEDS: APIXABAN 5 MG TABLET PO (22:20)
[2021-08-08] MEDS: Atorvastatin Calcium 20 MG Tablet PO (22:20)
[2021-08-08] MEDS: Amiodarone 200 MG Tablet 100 MG PO (22:20)
[2021-08-08 22:30] LABS: Bedside Glucose 189 mg/dL (70-110)
[2021-08-09 03:00] VITALS: PULSE 77
[2021-08-09 03:34] VITALS: BP 120/93; PULSE 79; RESP 18; TEMP 36.4; O2SAT 96
[2021-08-09] MEDS: Insulin Lispro 100 UNIT/ML INSULN.PEN SC (06:37)
[2021-08-09 06:46] LABS: Bedside Glucose 197 mg/dL (70-110)
[2021-08-09 07:05] VITALS: PULSE 81
[2021-08-09 07:24] LABS: Absolute Lymphocyte Count 1.78 X10^3/uL (0.83-4.51); Absolute Neutrophil Count 5.7 X10^3/uL (2.0-7.7); Basophil# 0.06 X10^3/uL; Basophil% 0.7 % (0-1); Eosinophil# 0.27 X10^3/uL; Eosinophils% 3.2 % (0-5); Hematocrit 48.8 % (40-54); Hemoglobin 16.6 g/dL (13.0-16.5); Lymphocyte # 1.78 X10^3/ul (0.83-4.51); Lymphocyte % 20.8 % (19-41); Mean Corpuscular Hgb 30.7 pg (27.0-32.0); Mean Corpuscular Volume 90.4 fL (80-94); Mean Platelet Vol. 9.4 fl (6.2-12.0); Monocyte# 0.71 X10^3/uL; Monocyte% 8.3 % (0-10); NRBC Flagged by Analyzer 0 % (0-5); Neutrophil # 5.71 X10^3/uL (2.7-7.7); Neutrophil % 66.6 % (47-70); Platelet Count 253 K/mm3 (150-450); RBC Distribution Width CV 12.7 % (11.6-14.6); RBC Distribution Width SD 41.8 fl (35.1-43.9); White Blood Count 8.6 K/mm3 (4.4-11.0)
[2021-08-09 07:46] VITALS: BP 149/93; PULSE 90; RESP 16; TEMP 36.6; O2SAT 98
[2021-08-09 08:00] LABS: ALB/GLOB Ratio 0.9 RATIO (0.9-2.4); AST(SGOT) 13 U/L (15-37); Alanine Aminotransfer ALT/SGPT 23 U/L (16-61); Albumin, Serum 3.7 g/dL (3.2-5.0); Alkaline Phosphatase 83 U/L (45-117); Anion Gap 7 (5-15); BUN 19 mg/dL (7-18); BUN/Creat Ratio 16.2 RATIO (10-20); Calcium,Total 9.1 mg/dL (8.5-10.1); Chloride 102 mmol/L (98-107); Creatinine, Serum 1.17 mg/dL (0.70-1.30); EST Glomerular Filtration Rate 69 mL/min (>60); Est Glom Filt Rate - Afr Amer 83 mL/min (>60); Estimated Creatinine Clearance 79.22 ml/min; Globulin 4.1 g/dL (2.2-4.2); Glucose 218 mg/dL (74-106); Potassium 3.7 mmol/L (3.5-5.1); Protein, Total 7.8 g/dL (6.4-8.2); Sodium Level 138 mmol/L (136-145)
--- NOTE | 2021-08-09 08:10 | PN.CARD_ITS ---
Subjective Subjective Patient seen and dilated. Appears to be doing well. Asymptomatic. Objective Data Vital Signs: Vital Signs Temp Pulse Resp BP Pulse Ox 97.9 F 90 16 149/93 H 98 08/09/21 07:46 08/09/21 07:46 08/09/21 07:46 08/09/21 07:46 08/09/21 07:46 Oxygen Delivery Method Room Air Weight: 244 lb 14.937 oz Body Mass Index (BMI) 33.2 Intake & Output: Intake and Output for Last 24 Hours 08/07/21 08/08/21 08/09/21 23:59 23:59 23:59 Intake Total 1159.89 / 1208.19 529.49 / 529.49 Output Total 500 / 500 400 / 400 Balance 659.89 / 708.19 129.49 / 129.49 Lab / Micro Data Result Diagrams: 08/09/21 07:10 08/09/21 07:10 Labs: Laboratory Results - last 24 hr 08/08/21 06:20: Hemoglobin A1c 7.3 H 08/08/21 16:47: POC Glucose 225 H 08/08/21 22:17: POC Glucose 189 H 08/09/21 06:35: POC Glucose 197 H 08/09/21 07:10: WBC 8.6, RBC 5.40, Hgb 16.6 H, Hct 48.8, MCV 90.4, MCH 30.7, MCHC 34.0, RDW Std Deviation 41.8, RDW Coeff of [place] 12.7, Plt Count 253, MPV 9.4, Immature Gran % (Auto) 0.400, Neut % (Auto) 66.6, Lymph % (Auto) 20.8, [place] % (Auto) 8.3, Eos % (Auto) 3.2, Baso % (Auto) 0.7, Absolute Neuts (auto) 5.7, Absolute Lymphs (auto) 1.78, Nucleated RBC % 0 08/09/21 07:10: Sodium 138, Potassium 3.7, Chloride 102, Carbon Dioxide 29.0, A nion Gap 7, BUN 19 H, Creatinine 1.17, Estim Creat Clear Calc 79.22, Est GFR (MDRD) Af Amer 83, Est GFR (MDRD) Non-Af 69, BUN/Creatinine Ratio 16.2, Glucose 218 H, Calcium 9.1, Total Bilirubin 1.30 H, AST 13 L, ALT 23, Alkaline Phosphatase 83, Total Protein 7.8, Albumin 3.7, Globulin 4.1, Albumin/Globulin R atio 0.9 Cardiology Labs/Tests 08/08/21 06:20: Hemoglobin A1c 7.3 H 08/09/21 07:10: WBC 8.6, RBC 5.40, Hgb 16.6 H, Hct 48.8, MCV 90.4, MCH 30.7, MCHC 34.0, Plt Count 253, MPV 9.4, Immature Gran % (Auto) 0.400, Neut % (Auto) 66.6, Lymph % (Auto) 20.8, [place] % (Auto) 8.3, Eos % (Auto) 3.2, Baso % (Auto) 0.7, Absolute Neuts (auto) 5.7, Nucleated RBC % 0 08/09/21 07:10: Sodium 138, Potassium 3.7, Chloride 102, Carbon Dioxide 29.0, Anion Gap 7, BUN 19 H, Creatinine 1.17, Est GFR (MDRD) Af Amer 83, Est GFR (MDRD) Non-Af 69, BUN/Creatinine Ratio 16.2, Glucose 218 H, Calcium 9.1, Total Bilirubin 1.30 H Rhythm: Atrial flutter with a controlled ventricular response rate EKG: ECHO: Stress Test: Cardiac Cath: PCI: CT Surgery: Holter monitor: EPS: PPM: CXR: Chest CT Scan: Radiography Diagnostic Testing: Radiology Impression Echocardiogram 08/07/21 20:06 Interpretation Summary Normal LV size. No regional wall motion abnormalities noted. Left ventricular systolic function is normal. The estimated ejection fraction is 60 %. Severe concentric left ventricular hypertrophy. Contrast injection was performed. Ordering Physician: Og Sharma Referring Physician: Chinedu Persaud Performed By: Miguel Suazo RCS Physical Exam Const alert, oriented x3 and no apparent distress General Appearance: cooperative HEENT hearing grossly normal bilaterally Head and Scalp: atraumatic Eyes EOMs intact bilaterally Neck General: normal visual inspection Chest inspection of chest normal and palpation of chest normal Resp normal respiratory effort Auscultation: clear to auscultation bilaterally Cardio S1 normal heart sound and S2 normal heart sound Jugular Venous Distention: JVD GI normal to inspection, nondistended, normoactive bowel sounds Extremity normal capillary refill and no pedal edema Peripheral Pulses: Yes pulses 2+ throughout and femoral pulses present Skin no rashes or lesions noted Neuro oriented x3 and CN's II-XII intact bilaterally Psych Appearance: grossly normal and appropriate Assessment & Plan Assessment/Plan (1) Atrial fibrillation with rapid ventricular response: PLAN: Patient presents with atrial fibrillation with a rapid ventricular response rate. He was slowed down and currently appears to be in a flutter with a controlled ventricular response rate and asymptomatic. * Will recommend starting him on anticoagulation as well as rate control medication. * I have added a short term antiarrhythmic with amiodarone increasing to 200 mg twice daily. He can be discharged on the current medications and will be seen by my office in 2 to 3 weeks. If he is still maintaining atrial fibrillation have brought in for DC cardioversion. After that the stress test can be performed as an outpatient and if negative think he can be switched over from amiodarone to flecainide. (2) Hypertension: QUALIFIERS: Hypertension type: primary hypertension Qualified Code(s): I10 - Essential (primary) hypertension PLAN: His blood pressure appears to be under fair control at this time. We will continue the beta-eugene, MERLE inhibitor, and the calcium channel eugene and the diuretic. Thank you for allowing me to participate in the care of your patient. Please don't hesitate to call if any issues arise.
[2021-08-09] MEDS: amLODIPine 10 MG Tablet PO (08:51)
[2021-08-09] MEDS: APIXABAN 5 MG TABLET PO (08:51)
[2021-08-09] MEDS: Atenolol 50 MG Tablet PO (08:52)
[2021-08-09] MEDS: Lisinopril 40 MG Tablet PO (08:52)
[2021-08-09] MEDS: hydroCHLOROthiazide 25 MG Tablet 50 MG PO (08:52)
[2021-08-09] MEDS: LINAGLIPTIN 5 MG TABLET PO (08:52)
[2021-08-09] MEDS: Amiodarone 200 MG Tablet PO (08:55)
--- NOTE | 2021-08-09 09:42 | EKG12_ITS ---
Test Reason : A-FLUTTER Blood Pressure : / mmHG Vent. Rate : 094 BPM Atrial Rate : 281 BPM P-R Int : 000 ms QRS Dur : 080 ms QT Int : 374 ms P-R-T Axes : 000 -30 -38 degrees QTc Int : 467 ms Atrial flutter with variable A-V block Left axis deviation Abnormal ECG Confirmed by MALIA LAMBERT, RAVEN ([id number]), manager editorial JOAN REYES ([id number]) on 08/10/2021 7:05:26 AM Referred By: Og Sharma Confirmed By:RAVEN FINLEY MD
--- NOTE | 2021-08-09 10:04 | PCM.DC ---
Discharge Instructions Diet Discharge Diet: Low fat / Low cholesterol Activity Discharge Activity: Return to Normal Activity May resume sexual activity in: No Restrictions Dressing / Incision Call your doctor if you observe: Shortness of breath, Dizziness, Swelling in the ankles, Chest pain and Increased palpitations (irregular heartbeat) Follow Up Care Please Follow Up With: Joy Cisneros, PA When: 2-3 weeks Test Results: Test results from this visit will be discussed in further detail at your follow-up appointment, if applicable. Discharge Plan Admission Admit Date/Time: 08/07/21 19:02 Primary Reason for Your Visit: Atrial fibrillation with rapid ventricular response Attending Provider: Maria De Jesus Coker Primary Care Provider: Nemesio Persaud Consulting Providers: Ez Loera Instructions Patient Instructions: Understanding Atrial Fibrillation Discharge Orders/Prescriptions Prescriptions: New atorvastatin 20 mg Tablet 20 mg PO QHS 30 Days Qty: 30 RF: 0 amiodarone 200 mg Tablet 200 mg PO BIDCM 30 Days Qty: 60 RF: 0 amlodipine 10 mg Tablet 10 mg PO DAILY 30 Days Qty: 30 RF: 0 apixaban 5 mg tablet 5 mg PO BID 30 Days Qty: 60 RF: 0 Continued hydrochlorothiazide 50 mg tablet 50 mg PO DAILY RF: 0 lisinopril 40 mg tablet 40 mg PO DAILY RF: 0 metformin 500 mg tablet extended release 24 hr 100 mg PO BID RF: 0 atenolol 50 mg tablet 50 mg PO DAILY RF: 0 Januvia 25 mg tablet 25 mg PO DAILY RF: 0 Discontinued amlodipine 5 mg tablet 5 mg PO DAILY RF: 0 rosuvastatin 10 mg tablet 10 mg PO DAILY RF: 0 Referrals / Follow Up: Nemesio Persaud MD [Primary Care Provider] -
--- NOTE | 2021-08-09 10:17 | DS.PCM_ITS ---
Documented by User: NOHEMI Porter 08/09/21 10:26 Providers Date of Admission: 08/07/21 Primary Care Physician: Dr. Nemesio Persaud MD Consultations 08/08/21 10:48 Consult: Cardiology Routine Consulting Provider: Ez Loera Reason for Consult: afibrvr EMERGENT Consult: No MD Notified: Yes Date Notified: 08/08/21 Time Notified: 10:48 Method of Notification: Text Reason For Visit: AFIB WITH RVR Diagnosis Discharge Diagnosis (1) Atrial fibrillation with rapid ventricular response: Status: Acute Code(s): I48.91 - Unspecified atrial fibrillation (2) Hypertension: Status: Chronic Code(s): I10 - Essential (primary) hypertension Qualifiers: Hypertension type: primary hypertension Qualified Code(s): I10 - Essential (primary) hypertension Plan: 1. Atrial fibrillation with RVR, new onset -Troponin negative, TSH normal -Echo demonstrates EF 60%, severe left ventricular hypertrophy -Per cardiology patient is started on p.o. amiodarone 200 mg twice daily, will continue at home. -Patient will be discharged on Eliquis twice daily, received therapeutic Lovenox while inpatient -Patient to follow-up in 2 to 3 weeks with [facility] 2. Hypertension, uncontrolled- -continue atenolol, hydrochlorothiazide, lisinopril. Amlodipine increased to 10 mg daily 3. Diabetes mellitus type 2 -May restart Metformin and Januvia upon discharge 4. Hyperlipidemia -Atorvastatin increased from 10 mg to 20 mg This patient was seen by NOHEMI Porter under the supervision of Dr. Coker. Medications at Discharge Home Medications Januvia 25 mg PO DAILY 08/07/21 atenolol 50 mg PO DAILY 08/07/21 hydrochlorothiazide 50 mg PO DAILY 08/07/21 lisinopril 40 mg PO DAILY 08/07/21 metformin 100 mg PO BID 08/07/21 amiodarone 200 mg PO BIDCM 30 Days #60 tab 08/09/21 amlodipine 10 mg PO DAILY 30 Days #30 tab 08/09/21 apixaban 5 mg PO BID 30 Days #60 tab 08/09/21 rosuvastatin 10 mg PO DAILY #30 tab 08/09/21 Hospital Course Operations None Procedures 2-D Echocardiogram and EKG Summary of Care Provided Minutes Spent on Discharge: 35 Physical Exam Const alert, oriented x3 and no apparent distress General Appearance: cooperative HEENT normocephalic and head/scalp atraumatic Eyes conjunctivae normal and no scleral icterus Neck supple and no JVD General: trachea midline Resp normal respiratory effort, normal air movement and clear to auscultation bilaterally Cardio S1 normal heart sound, S2 normal heart sound and peripheral pulses 2+ throughout Rhythm: abnormal rhythm regularly irregular GI normal to inspection, nondistended, normoactive bowel sounds, soft to palpation and non-tender Extremity normal capillary refill and no clubbing, cyanosis or edema General Extremity: no tenderness to palpation of joints or extremities Skin skin turgor normal General Skin Exam: no breakdown Lesions: no lesions Rashes: no rashes Neuro no focal motor deficits and no sensory deficits noted Speech: speech normal Motor Exam: strength 5/5 throughout; Negative for general weakness Psych affect normal Appearance: appropriate Weight / BMI Weight Weight: 244 lb 14.937 oz Body Mass Index (BMI) 33.2 ABG / Lab / Microbiology Data Result Diagrams: 08/09/21 07:10 08/09/21 07:10 Laboratory: Laboratory Results - last 24 hr 08/08/21 06:20: Hemoglobin A1c 7.3 H 08/08/21 16:47: POC Glucose 225 H 08/08/21 22:17: POC Glucose 189 H 08/09/21 06:35: POC Glucose 197 H 08/09/21 07:10: WBC 8.6, RBC 5.40, Hgb 16.6 H, Hct 48.8, MCV 90.4, MCH 30.7, MCHC 34.0, RDW Std Deviation 41.8, RDW Coeff of [place] 12.7, Plt Count 253, MPV 9.4, Immature Gran % (Auto) 0.400, Neut % (Auto) 66.6, Lymph % (Auto) 20.8, [place] % (Auto) 8.3, Eos % (Auto) 3.2, Baso % (Auto) 0.7, Absolute Neuts (auto) 5.7, Absolute Lymphs (auto) 1.78, Nucleated RBC % 0 08/09/21 07:10: Sodium 138, Potassium 3.7, Chloride 102, Carbon Dioxide 29.0, Anion Gap 7, BUN 19 H, Creatinine 1.17, Estim Creat Clear Calc 79.22, Est GFR (MDRD) Af Amer 83, Est GFR (MDRD) Non-Af 69, BUN/Creatinine Ratio 16.2, Glucose 218 H, Calcium 9.1, Total Bilirubin 1.30 H, AST 13 L, ALT 23, Alkaline Phosphatase 83, Total Protein 7.8, Albumin 3.7, Globulin 4.1, Albumin/Globulin Ratio 0.9 Radiography Diagnostic Testing: Radiology Impression Echocardiogram 08/07/21 20:06 Interpretation Summary Normal LV size. No regional wall motion abnormalities noted. Left ventricular systolic function is normal. The estimated ejection fraction is 60 %. Severe concentric left ventricular hypertrophy. Contrast injection was performed. Ordering Physician: Og Sharma Referring Physician: Chinedu Persaud Performed By: Miguel Suazo RCS D/C Instructions Discharge Diet: Low fat / Low cholesterol May resume sexual activity in: No Restrictions Call your doctor if you observe: Shortness of breath, Dizziness, Swelling in the ankles, Chest pain and Increased palpitations (irregular heartbeat) Please Follow Up With: Joy Cisneros PA When: 2-3 weeks Meaningful Use Info Meaningful Use Diagnoses (Choose all that apply): None applicable Discharge Plan Admission Admit Date/Time: 08/07/21 19:02 Primary Reason for Your Visit: Atrial fibrillation with rapid ventricular response Attending Provider: Maria De Jesus Coker Primary Care Provider: Nemesio Persaud Consulting Providers: Ez Loera Instructions Patient Instructions: Understanding Atrial Fibrillation Discharge Orders/Prescriptions Prescriptions: New amiodarone 200 mg Tablet 200 mg PO BIDCM 30 Days Qty: 60 RF: 0 amlodipine 10 mg Tablet 10 mg PO DAILY 30 Days Qty: 30 RF: 0 apixaban 5 mg tablet 5 mg PO BID 30 Days Qty: 60 RF: 0 rosuvastatin 10 mg tablet 10 mg PO DAILY Qty: 30 RF: 0 Continued hydrochlorothiazide 50 mg tablet 50 mg PO DAILY RF: 0 lisinopril 40 mg tablet 40 mg PO DAILY RF: 0 metformin 500 mg tablet extended release 24 hr 100 mg PO BID RF: 0 atenolol 50 mg tablet 50 mg PO DAILY RF: 0 Januvia 25 mg tablet 25 mg PO DAILY RF: 0 Discontinued amlodipine 5 mg tablet 5 mg PO DAILY RF: 0 rosuvastatin 10 mg tablet 10 mg PO DAILY RF: 0 Referrals / Follow Up: Nemesio Persaud MD [Primary Care Provider] - Disposition Disposition (needs filled in before D/C Order can be placed): Home, Self Care Documented by User: Dr. Maria De Jesus Coker MD 08/09/21 13:12 Providers Date of Admission: 08/07/21 Reason For Visit: AFIB WITH RVR Medications at Discharge Home Medications Januvia 25 mg PO DAILY 08/07/21 atenolol 50 mg PO DAILY 08/07/21 hydrochlorothiazide 50 mg PO DAILY 08/07/21 lisinopril 40 mg PO DAILY 08/07/21 metformin 100 mg PO BID 08/07/21 amiodarone 200 mg PO BIDCM 30 Days #60 tab 08/09/21 amlodipine 10 mg PO DAILY 30 Days #30 tab 08/09/21 apixaban 5 mg PO BID 30 Days #60 tab 08/09/21 rosuvastatin 10 mg PO DAILY #30 tab 08/09/21 ABG / Lab / Microbiology Data Result Diagrams: 08/09/21 07:10 08/09/21 07:10 Discharge Plan Admission Admit Date/Time: 08/07/21 19:02 Primary Reason for Your Visit: Atrial fibrillation with rapid ventricular response Attending Provider: Maria De Jesus Coker Primary Care Provider: Nemesio Persaud Consulting Providers: Ez Loera Instructions Patient Instructions: Understanding Atrial Fibrillation Discharge Orders/Prescriptions Prescriptions: New amiodarone 200 mg Tablet 200 mg PO BIDCM 30 Days Qty: 60 RF: 0 amlodipine 10 mg Tablet 10 mg PO DAILY 30 Days Qty: 30 RF: 0 apixaban 5 mg tablet 5 mg PO BID 30 Days Qty: 60 RF: 0 rosuvastatin 10 mg tablet 10 mg PO DAILY Qty: 30 RF: 0 Continued hydrochlorothiazide 50 mg tablet 50 mg PO DAILY RF: 0 lisinopril 40 mg tablet 40 mg PO DAILY RF: 0 metformin 500 mg tablet extended release 24 hr 100 mg PO BID RF: 0 atenolol 50 mg tablet 50 mg PO DAILY RF: 0 Januvia 25 mg tablet 25 mg PO DAILY RF: 0 Discontinued amlodipine 5 mg tablet 5 mg PO DAILY RF: 0 rosuvastatin 10 mg tablet 10 mg PO DAILY RF: 0 Referrals / Follow Up: Nemesio Persaud MD [Primary Care Provider] - Disposition Disposition (needs filled in before D/C Order can be placed): Home, Self Care Charges/Coding Addendum Addendum: This patient was seen in conjunction with Lenka Walker. I have independently interviewed and examined the patient and reviewed pertinent historical, laboratory, and other data. I have reviewed her note and concur with her documentation 56-year-old male with past medical history of hypertension, type II DM who comes in with complaints of palpitations and chest discomfort. Patient was found to have A. fib with RVR in the emergency room. He received multiple bolus doses of IV Cardizem. This was followed with Cardizem drip. His heart rate was still not controlled. He received a dose of digoxin as well as started on amiodarone drip. Patient heart rate was seen to be all over the place with episodes of bradycardia and pauses. Cardiology was consulted. He later on converted to normal sinus rhythm. 2D echo showed EF of 60%. Changes were made to his blood pressure medications. He was also started on apixaban. Patient was discharged to follow-up with cardiology in the outpatient. On the day of discharge, patient was seen and examined. Denied any new complaint. Physical Exam: Gen: Comfortable, not pale, not jaundiced CVS:HS I +II, regular, no murmurs RESP: Diminished at lung bases GI: BS present and normal, soft, nontender, no palpable organs EXT:No edema Visit Charges Inpatient E&M: 61061 Disch Hosp
--- NOTE | 2021-08-09 10:25 | CASEMGMT ---
Addendum entered by Argentina Champagne 08/09/21 11:10: Call to [facility] pharmacy and per tech, pt's co-pay is $96.80. Pt updated, voices understanding. Ophelia PAVON CM Original Note: Pt to be sent home on Eliquis and med e-scribed to [facility] in [place] per pt request. This SAVANAH COATES will call and check on coverage/co-pay. Pt provided with Eliquis 30 day free trial card and $10 co-pay card at this time with instructions, voices understanding. CM to follow. Ophelia PAVON CM
--- NOTE | 2021-08-09 12:27 | PHA.DC.MC ---
Pharmacy Service has performed discharge medication reconciliation and counseling for this patient. The patient was counseled on the following discharge medications and changes in medications for homegoing were reviewed. 1. AMIODARONE 2. ELIQUIS 3. NORVASC --> DOSE INCREASE FROM 5MG TO 10MG The Reason for Use, instructions for use, and potential side effects were reviewed for all new medications. The patient's questions regarding all of their medications were answered. The patient was able to verbally demonstrate an understanding of their discharge medications. Home Medications Januvia 25 mg PO DAILY 08/07/21 atenolol 50 mg PO DAILY 08/07/21 hydrochlorothiazide 50 mg PO DAILY 08/07/21 lisinopril 40 mg PO DAILY 08/07/21 metformin 100 mg PO BID 08/07/21 amiodarone 200 mg PO BIDCM 30 Days #60 tab 08/09/21 amlodipine 10 mg PO DAILY 30 Days #30 tab 08/09/21 apixaban 5 mg PO BID 30 Days #60 tab 08/09/21 rosuvastatin 10 mg PO DAILY #30 tab 08/09/21 The patient's discharge medication list was reviewed for discrepancies and discrepancies were resolved.
== END 2021-08-09 13:50 | disposition home or self-care (01) | DRG 310 ==
LOC: ED 19:03 → PCU 19:11
PROVIDERS: Admitting Provider Hospitalist; Emergency Provider Emergency Medicine; PCP Family Medicine; Referring Provider Hospitalist; Visit Provider Internal Medicine
DX: I48.0 Paroxysmal atrial fibrillation (principal); I10 Essential (primary) hypertension; E11.9 Type 2 diabetes mellitus without complications; E78.5 Hyperlipidemia, unspecified; Z79.84 Long term (current) use of oral hypoglycemic drugs; Z88.0 Allergy status to penicillin; Z82.3 Family history of stroke
CPT/HCPCS: 36415; 71045; 80048; 80053; 82962; 83036; 83735; 84443; 84484; 85025; 93005; 93306; 99285; J7030; Q9957; A4216; C8929; J3490

== ENCOUNTER 2021-08-11 17:12 | Emergency (ER) | payer BC, SELFPAY ==
[2021-08-11 17:13] VITALS: BP 169/93; PULSE 74; RESP 16; TEMP 37.2; BMI 33.7
--- NOTE | 2021-08-11 18:01 | EX.ED.DYSGE1 ---
HPI History of Present Illness Chief Complaint: Cellulitis Informant: patient Narrative Narrative: 56-year-old male recently discharged in the hospital after is hospitalized for atrial fibrillation. He is on Eliquis currently as well as amiodarone. He had an IV in his left forearm was receiving IV amiodarone and also had some contrast studies. Patient states that he noted that yesterday he had a sore forearm and then developed a red streak on his forearm. She states today the discomfort is better but he was encouraged to be seen. [facility] Medical History A-fib Diabetes History of deviated nasal septum HLD (hyperlipidemia) Hypertension Peyronie's disease Home Medications Januvia 25 mg PO DAILY 08/07/21 [History Last Taken Unknown] atenolol 50 mg PO DAILY 08/07/21 [History Last Taken Unknown] hydrochlorothiazide 50 mg PO DAILY 08/07/21 [History Last Taken Unknown] lisinopril 40 mg PO DAILY 08/07/21 [History Last Taken Unknown] metformin 100 mg PO BID 08/07/21 [History Last Taken Unknown] amiodarone 200 mg PO BIDCM 30 Days #60 tab 08/09/21 [Rx Last Taken Unknown] amlodipine 10 mg PO DAILY 30 Days #30 tab 08/09/21 [Rx Last Taken Unknown] apixaban 5 mg PO BID 30 Days #60 tab 08/09/21 [Rx Last Taken Unknown] rosuvastatin 10 mg PO DAILY #30 tab 08/09/21 [Rx Last Taken Unknown] Allergy/AdvReac Type Severity Reaction Status Date / Time amoxicillin Allergy Angioedema Verified 08/11/21 17:17 Penicillins [PCN] Allergy Angioedema Verified 08/11/21 17:17 metoprolol [From Toprol XL] AdvReac Other Verified 08/11/21 17:17 valsartan [From Diovan] AdvReac Upset Verified 08/11/21 17:17 Stomach Family History Other CVA (cerebral vascular accident) Heart disease Hypertension Surgical History History of ankle surgery S/P manipulation of deviated nasal septum [place] teeth extracted Social History (Updated 08/11/21 @ 18:[address] Jacinto Jeronimo, DO) Smoking Status: Never smoker substance use type: does not use ROS ROS ED Constitutional Constitutional ED: Denies chills or weight loss Eyes Eyes: Denies change in vision or diplopia ENT ENT ED: Denies ear pain, rhinorrhea or sore throat Cardiovascular Cardiovascular: Denies chest pain, orthopnea, palpitations or racing heartbeat Respiratory/Chest Respiratory/Chest: Denies cough, dyspnea or orthopnea Gastrointestinal Gastrointestinal: Denies abdominal pain, diarrhea, nausea or vomiting Genitourinary Genitourinary ED: Denies dysuria, hematuria or urinary frequency Musculoskeletal Musculoskeletal: Denies arthralgias or myalgias Integumentary Reports rash; Denies abscess Neurologic Neurologic: Denies headache(s) or weakness Psychiatric Psychiatric: Denies anxiety, depression, suicidal ideation or suicidal thoughts Endocrine Endocrinology: Denies polydipsia, polyphagia or polyuria Allergic/Immunologic Allergic/Immunologic ED: Denies mouth swelling, tongue swelling or urticaria EXAM Physical Exam Const Vital Signs: 08/11/21 17:13 Temperature 99.0 F Temperature Source Temporal Pulse Rate 74 Respiratory Rate 16 Blood Pressure 169/93 H Blood Pressure Mean 118 Positive well nourished and well developed General Appearance ED: well developed HEENT Reports normocephalic, head/scalp atraumatic and moist mucous membranes Eyes PERRL and EOMs intact bilaterally Neck no lymphadenopathy, supple and no JVD Resp normal respiratory effort and clear to auscultation bilaterally Cardio regular rate, regular rhythm and no murmurs GI normal to inspection, nondistended, normoactive bowel sounds and non-tender Palpation: soft Back/Spine no CVA tenderness and normal ROM Extremity Extremity Narrative: Anterior aspect of the left forearm demonstrates a recent venipuncture site. Approximately 2.5 cm above this is a 10 cm area of erythema consistent with superficial thrombophlebitis. There is no significant swelling of the arm. There is no proximal arm symptoms no tenderness along the brachial vein. Neurovascular intact distally General Extremety ED: Negative for edema General Extremity: Negative for edema Neuro oriented x3 and CN's II-XII intact bilaterally Sensorium / Orientation: alert Motor Exam: strength 5/5 throughout Psych mental status grossly normal Mood & Affect: Negative for depressed or tearful Skin no rashes or lesions noted and no wounds MDM MDM MDM Narrative Medical decision making narrative: Patient is already on Eliquis. He is not having any significant pain. I recommend warm compresses or continue to monitor. Discharge Plan Triage Chief Complaint: Cellulitis ED Provider: Jacinto Jeronimo Dx/Rx/DC Orders Clinical Impression: Superficial thrombophlebitis of left upper extremity Instructions: ED Thrombophlebitis, Superficial Prescriptions: No Action hydrochlorothiazide 50 mg tablet 50 mg PO DAILY RF: 0 lisinopril 40 mg tablet 40 mg PO DAILY RF: 0 metformin 500 mg tablet extended release 24 hr 100 mg PO BID RF: 0 atenolol 50 mg tablet 50 mg PO DAILY RF: 0 Januvia 25 mg tablet 25 mg PO DAILY RF: 0 amiodarone 200 mg Tablet 200 mg PO BIDCM 30 Days Qty: 60 RF: 0 amlodipine 10 mg Tablet 10 mg PO DAILY 30 Days Qty: 30 RF: 0 apixaban 5 mg tablet 5 mg PO BID 30 Days Qty: 60 RF: 0 rosuvastatin 10 mg tablet 10 mg PO DAILY Qty: 30 RF: 0 Primary Care Provider: Nemesio Persaud Referrals: Nemesio Persaud MD [Primary Care Provider] - As Needed Disposition Disposition: Home, Self Care
[2021-08-11 18:15] VITALS: PULSE 86; RESP 18; O2SAT 97
== END 2021-08-11 18:22 | disposition home or self-care (01) ==
PROVIDERS: Emergency Provider Emergency Medicine; PCP Family Medicine
DX: I80.8 Phlebitis and thrombophlebitis of other sites (principal); I48.91 Unspecified atrial fibrillation; E78.5 Hyperlipidemia, unspecified; I10 Essential (primary) hypertension; E11.9 Type 2 diabetes mellitus without complications; N48.6 Induration penis plastica; Z79.01 Long term (current) use of anticoagulants; Z79.84 Long term (current) use of oral hypoglycemic drugs; Z79.899 Other long term (current) drug therapy
CPT/HCPCS: 99282

== ENCOUNTER → 2021-09-20 07:01 | Outpatient (CLI) | payer BC, SELFPAY ==
--- NOTE | 2021-09-20 17:18 | STRESSREP ---
Stress Test Report Exercise myocardial perfusion stress test. 56-year-old man with a history of atrial fibrillation. Medications atenolol hydrochlorothiazide lisinopril amiodarone amlodipine apixaban rosuvastatin. Stress protocol: Resting EKG demonstrates normal sinus rhythm with a rate of 63 bpm normal intervals are noted resting blood pressure is 128/86 mmHg. Patient exercised according to regular Saúl protocol for total duration of 8 minutes the maximum heart rate attained was 139 bpm which was 83% of maximum predicted heart rate the maximum workload of 10.1 metabolic equivalents. At rest there were no ST or T wave changes noted to suggest ischemia and at peak exercise upsloping ST changes were noted with did not meet the criteria for ischemia. No clinical angina was noted. The test was terminated due to dyspnea. The peak blood pressure was 184/86 mmHg. Myocardial perfusion protocol. 14.6 mCi of technetium 99m sestamibi was injected at rest. Patient exercised according to regular Saúl protocol and at peak exercise 44.4 mCi of technetium 99m sestamibi was injected stress images were obtained stress and rest images were reconstructed and compared in the short axis, vertical long and horizontal long axis. Perfusion SPECT analysis: Review of the images demonstrate normal uptake of tracer noted in all areas of the myocardium. The resting images similarly demonstrate normal uptake of tracer noted in all areas of the myocardium. No areas of reversibility are noted suggest ischemia no previous infarct is noted. Gated SPECT analysis: The gated ejection fraction is 64%. Conclusion: Normal exercise myocardial perfusion stress test at a high workload. Preserved ejection fraction. No atrial fibrillation noted.
== END ==
PROVIDERS: PCP Family Medicine; Referring Provider Nurse Practitioner Gerontology; Visit Provider Nurse Practitioner Gerontology
DX: I48.0 Paroxysmal atrial fibrillation (principal); E78.5 Hyperlipidemia, unspecified; I10 Essential (primary) hypertension
CPT/HCPCS: 78452; 93017; A9500; A4216